=== PATIENT | male | born 1985 | race African-American/Black ===

== ENCOUNTER 2023-02-03 19:22 | Emergency (ER) | payer SELFPAY ==
[2023-02-03 19:25] VITALS: BP 126/78; PULSE 73; RESP 18; TEMP 37; O2SAT 97; BMI 25.6
--- NOTE | 2023-02-03 19:45 | ED.DENTAL1 ---
HPI - Dental/Oral General Chief complaint: Dental/Oral Stated complaint: TOOTHACHE Time Seen by Provider: 02/03/23 19:35 Source: patient Mode of arrival: walk-in History of Present Illness HPI Narrative: This 37 year old male who recently moved to [place] from [place] presents for evaluation of a tender lump in his right lower jaw. He states that he has a hole in the adjacent tooth, tooth #29. This tooth was bothering him last week. He has tried to call around to get into see a dentist but has been able to procure an appointment at this point. He states the tooth is no longer bothering him but he now has a tender lump adjacent to the tooth in his jaw. He has an approximately 1.5 cm tender nodular area in the right mid mandibular area. He denies any fever. He has not having difficulty breathing or swallowing. Related Data Home Medications Medication Instructions Recorded Confirmed No Known Home Medications 02/03/23 02/03/23 Allergies Allergy/AdvReac Type Severity Reaction Status Date / Time No Known Drug Allergies Allergy Verified 02/03/23 19:30 Review of Systems ROS Status of ROS 10 or more systems reviewed and unremarkable except as noted in history and below [facility] Social History Smoking status: Current some day smoker Exam Narrative Exam Narrative: Nurses note and vital signs reviewed and patient is not hypoxic. General: The patient appears well and in no apparent distress. Patient is resting comfortably on cart. Skin: Warm, dry, no pallor noted. There is no rash noted. Head: Normocephalic, atraumatic Eye: Normal conjunctiva, no drainage, EOMI. PERRL Ears, Nose, Mouth, and Throat: oral mucosa is moist.There is a visible dental caries in tooth #29. Adjacent to this in the gumline against the mandible is a tender palpable mass consistent with a dental abscess. There is no visible facial swelling. There is no trismus or drooling. There is no sign of necrotizing gingivitis. Cardiovascular: Regular Rate and Rhythm Respiratory: Patient is in no distress, no accessory muscle use, lungs are clear to auscultation, no wheezing, rales or rhonchi Neurological: A&O x4, normal speech Psychiatric: Cooperative Constitutional Vital Signs, click to edit/add: Last Vital Signs Temp 98.6 F 02/03/23 19:25 Pulse 73 02/03/23 19:25 Resp 18 02/03/23 19:25 BP 126/78 02/03/23 19:25 Pulse Ox 97 02/03/23 19:25 O2 Del Method Room Air 02/03/23 19:25 Course Vital Signs Vital signs: Vital Signs Temperature 98.6 F 02/03/23 19:25 Pulse Rate 73 02/03/23 19:25 Respiratory Rate 18 02/03/23 19:25 Blood Pressure 126/78 02/03/23 19:25 Pulse Oximetry 97 02/03/23 19:25 Oxygen Delivery Method Room Air 02/03/23 19:25 Temperature 98.6 F 02/03/23 19:25 Pulse Rate 73 02/03/23 19:25 Respiratory Rate 18 02/03/23 19:25 Blood Pressure 126/78 02/03/23 19:25 Pulse Oximetry 97 02/03/23 19:25 Oxygen Delivery Method Room Air 02/03/23 19:25 MDM - Dental/Oral MDM Narrative Medical decision making narrative: This otherwise healthy 37-year-old male presents for evaluation of a dental abscess adjacent to a tooth where he has a visible dental bryan. He has attempted to reach out to several dentists in the local area but so far has been unable to procure an appointment. He was medicated in emergency department with 500 mg of amoxicillin and one [place] with Zofran to her event nausea vomiting from the [place] and will be discharged home with prescription for amoxicillin, 2 [place] to take home and a prescription for 600 mg ibuprofen and norco (#10). His exam is otherwise benign. [facility] was attempted but as the patient is from [place], I was unable to get any information. Discharge Plan Discharge Chief Complaint: Dental/Oral Clinical Impression: Dental caries, Dental abscess Patient Disposition: Home, Self-Care Time of Disposition Decision: 19:50 Condition: Good Prescriptions / Home Meds: No Action No Known Home Medications Instructions: Dental Abscess (ED), Toothache (ED) Stand Alone Forms: Portal Instructions Discharge Date/Time: 02/03/23 20:38
[2023-02-03] MEDS: HYDROCODONE/ACET 5-325 MG TABLET 2 TAB PO (20:29)
[2023-02-03] MEDS: ONDANSETRON 4 MG RAPDIS TABLET SL (20:30)
[2023-02-03] MEDS: AMOXICILLIN 500 MG CAPSULE PO (20:30)
== END 2023-02-03 20:38 | disposition home or self-care (01) ==
PROVIDERS: Emergency Provider Emergency Medicine
DX: K02.9 Dental caries, unspecified (principal); K04.7 Periapical abscess without sinus; F17.210 Nicotine dependence, cigarettes, uncomplicated
CPT/HCPCS: 99284